=== PATIENT | female | born 1950 | race Caucasian/White ===

== ENCOUNTER → 2023-03-12 09:16 | Outpatient (BNVA) | payer MEDICARE, SELFPAY | PROVIDERS: PCP Family Medicine; Referring Provider Internal Medicine; Visit Provider Psychiatry & Neurology Neurology | DX: I69.398 Other sequelae of cerebral infarction (principal); H53.461 Homonymous bilateral field defects, right side; H53.462 Homonymous bilateral field defects, left side; I69.315 Cognitive social or emotional deficit following cerebral infarction; I48.91 Unspecified atrial fibrillation; I67.2 Cerebral atherosclerosis | CPT/HCPCS: 99205 ==